=== PATIENT | male | born 1980 | race Caucasian/White ===

== ENCOUNTER 2022-08-18 05:38 | Day surgery (SDC) | payer OTHER ==
[~2022-08-18] VITALS: Ht 172.7 cm; Wt 79.4 kg
[~2022-08-18 05:38] MED LIST: ALBUTEROL SULFAT8 MG PO; BREO ELLIPTA 21 EACH IH; LOTREL 10-20 M1 EACH PO; OMEPRAZOLE MAGN20 MG PO; TOPROL
[2022-08-18] MEDS ORDERED: PERCOCET 5-3251 EACH PO (10:13)
[2022-08-18] MEDS ORDERED: POLY119PG PO (10:14)
[2022-08-18] MEDS ORDERED: NEURONTIN600 M1 PO (10:14)
== END 2022-08-18 13:40 | disposition home or self-care (01) ==
LOC: CIR.AMB 05:38
PROVIDERS: ATTEND Surgery
DX: K40.20 Bilateral inguinal hernia, without obstruction or gangrene, not specified as recurrent (principal); Z20.822 Contact with and (suspected) exposure to COVID-19; Z88.6 Allergy status to analgesic agent; I10 Essential (primary) hypertension; F32.A Depression, unspecified
CPT/HCPCS: 49650; C1781